=== PATIENT | male | born 1935 | race Two or more races ===

== ENCOUNTER 2022-04-22 17:13 | Inpatient (IN) | payer MEDICARE, OTHER ==
[~2022-04-22] VITALS: Ht 182.9 cm; Wt 83.5 kg
--- NOTE | 2022-04-22 17:15 | NUR ---
down in stor Received pt 86 yrs male came by ritu from store for syncope wake and fallow command pt said i fall down family at bed side
[2022-04-22] MEDS ORDERED: IV NS 0.9% 1,000 ML BAG IV ONE (17:30)
[2022-04-22 17:57] LABS: BASOPHILS % (AUTO) 0.4 % (0.0-2.0); EOSINOPHILS % (AUTO) 2.8 % (0.0-6.0); HEMATOCRIT 41 % (39-51); HEMOGLOBIN 13.7 g/dL (13.5-17.5); LYMPHOCYTES # (AUTO) 0.8 K/uL (0.8-4.8); LYMPHOCYTES % (AUTO) 12.3 % (20.0-44.0); MEAN CORPUSCULAR HGB CONC 33 g/dl (31.0-36.0); MEAN CORPUSCULAR VOLUME 88 fL (80-96); MONOCYTES # (AUTO) 0.4 K/uL (0.1-1.30); MONOCYTES % (AUTO) 5.4 % (2.0-12.0); NEUTROPHILS # (AUTO) 5.4 K/uL (1.8-8.9); NEUTROPHILS % (AUTO) 79.1 % (43.0-81.0); PLATELET COUNT (AUTO) 214 K/uL (150-450); RED BLOOD CELL COUNT(AUTO) 4.69 MIL/uL (4.5-6.0); WHITE BLOOD COUNT (AUTO) 6.8 K/uL (4.3-11.0)
[2022-04-22 18:00] LABS: CALCIUM, SERUM 8.2 mg/dL (8.5-10.1); CARBON DIOXIDE 28 mmol/L (21-32); CHLORIDE 101 mmol/L (98-107); CREATININE 1.8 mg/dL (0.6-1.3); GLUCOSE 122 mg/dL (74-106); POTASSIUM 4.1 mmol/L (3.5-5.1); SODIUM SERUM 136 mmol/L (136-145); UREA NITROGEN, BLOOD 30 mg/dL (7-18)
[2022-04-22 18:05] LABS: ALANINE AMINOTRANSFERASE 55 U/L (12-78); ALBUMIN 3.3 g/dL (3.4-5.0); ALKALINE PHOSPHATASE 64 U/L (46-116); ASPARTATE AMINOTRANSFERASE 32 U/L (15-37); BILIRUBIN,DIRECT 0.2 mg/dL (0.0-0.2); BILIRUBIN,TOTAL 0.4 mg/dL (0.2-1.0); TOTAL PROTEIN, SERUM 7.3 g/dL (6.4-8.2)
[2022-04-22 18:38] LABS: BAND % (MANUAL) 2 % (0.0-5.0); EOSINOPHILS % (MANUAL) 8 % (0-4); LYMPHOCYTES % (MANUAL) 10 % (16-48); MONOCYTES % (MANUAL) 2 % (0-11.0); NEUTROPHILS % (MANUAL) 78 (42-76)
--- NOTE | 2022-04-22 18:45 | NUR ---
rapid covid swab done and sent to lab
--- NOTE | 2022-04-22 19:17 | NUR ---
MOVE SHEET SUBMITTED.
--- NOTE | 2022-04-22 19:45 | NUR ---
RECEIVED PT IN ER BED 2 FROM HOME. PT IS RESTING COMFORTABLY IN BED. ALERT AND DENIES ANY DISCOMFORT AT THIS TIME. RR EVEN AND NON LABORED. CONNECTED TO POX AND HEART MONITOR. WARM BLANKET PROVIDED. WILL CONTINUE TO MONITOR
--- NOTE | 2022-04-22 19:45 | NUR ---
HAND OFF ITALIA ACOSTA
--- NOTE | 2022-04-22 20:27 | NUR ---
COVID +. AWARE. PAGED RHONDA RUFFIN
--- NOTE | 2022-04-22 20:56 | NUR ---
PT GOING TO 108
--- NOTE | 2022-04-22 21:50 | NUR ---
RN NOTES RECEIVED ER ADMISSION REPORT FROM DAVE JOHNSON. ALL PERTINENT ADMISSION INFO REGARDING PT NOTED. WILL WAIT FOR PT TO BE TRANSFERRED TO UNIT AND ADDRESS NEEDS ACCORDINGLY. MACHINE TAPER MADE AWARE.
--- NOTE | 2022-04-22 21:51 | NUR ---
REPORT GIVEN TO RONDA ACOSTA FOR COTY
[2022-04-22 22:00] VITALS: BP 130/77
--- NOTE | 2022-04-22 22:00 | NUR ---
RN NOTES RECEIVED PT FROM ER VIA [facility]IE ACCOMPANIED BY 2 ER STAFF AND TRANSFERRED TO BED VIA 2 PERSON ASSIST. PT IS A/OX4; ON 4L OF O2 VIA NC RESPIRATIONS EVEN AND UNLABORED. COMPREHENSIVE PHYSICAL ASSESSMENT AND PATIENT CARE DONE. CALL LIGHT WITHIN REACH, SAFETY MEASURES AND ISOLATION PRECAUTION IN PLACE, WILL CONTINUE MONITOR AND ASSESS THROUGHOUT THE SHIFT. WILL CARRY OUT MD ORDERS ACCORDINGLY. TRUCK CRANE OPERATOR HELPER MADE AWARE.
--- NOTE | 2022-04-22 22:10 | NUR ---
TRANSFERRED TO 108 UNDER ACLS
[2022-04-22] MEDS ORDERED: Z GUARD REMEDY 4 OZ OINT TP PRN (22:30)
[2022-04-22] MEDS ORDERED: ONDANSETRON HCL/PF 4 MG/2 ML VIAL IVP PRN (22:30)
[2022-04-22] MEDS ORDERED: ACETAMINOPHEN 325 MG TABLET PO PRN (22:30)
--- NOTE | 2022-04-22 22:30 | NUR ---
RN NOTES RECEIVED CALL FROM DR. RUFFIN, TO TRY SWITCHING PT ON ROOM AIR; USED TO BE ON 2-4L SAT @99-100%. RN ACKNOWLEDGED. PT PUT ON ROOM AIR AND TOLERATES WELL O2 SAT REMAINS @95-98%. MD AWARE AND DISH PERSON MADE AWARE.
[2022-04-22] MEDS: IV NS 0.9% 1,000 ML IV PRN (22:59)
[2022-04-23] VITALS: BP 123/76
[2022-04-23 04:00] VITALS: BP 123/64
--- NOTE | 2022-04-23 04:00 | NUR ---
RN NOTES PATIENT NOTED TO BE IN NO SIGNS OF ACUTE RESPIRATORY DISTRESS AT THIS TIME, SAFE ENVIRONMENT MAINTAINED FOR PT. AM PATIENT CARE RENDERED. WILL CONTINUE TO MONITOR AND REASSESS FOR ANY CHANGES THROUGHOUT THE SHIFT.
--- NOTE | 2022-04-23 06:41 | NUR ---
RN CLOSING NOTE: PATIENT REMAINS IN ROOM IN NO SIGNS OF RESPIRATORY DISTRESS, PATIENT ON ROOM AIR ;TOLERATING WELL SATURATING @ >95% SP02. SB ON MONITOR. SAFETY MEASURES IMPLEMENTED, BED IN LOWEST POSITION, LOCKED, SIDE RAILS UP, CALL LIGHT WITHIN REACH. ALL NEEDS AND ORDERS ADDRESSED DURING THE SHIFT. IV ACCESS MAINTAINED INTACT, SECURED AND FLUSHING WELL. PATIENT KEPT CLEAN AND COMFORTABLE WITHIN THE SHIFT. PATIENT ENDORSED TO INCOMING SHIFT RN WITH STABLE VITAL SIGN AND FOR CONTINUITY OF CARE.
--- NOTE | 2022-04-23 07:20 | NUR ---
GRINDER MACHINE SETTER OPENING NOTE: RECEIVED PT IN BED ASLEEP PATIENT REMAINS IN ROOM IN NO SIGNS OF RESPIRATORY DISTRESS, PATIENT ON ROOM AIR ;TOLERATING WELL SATURATING @ >95% SP02. SB ON MONITOR HR 56. SAFETY MEASURES IMPLEMENTED, BED IN LOWEST POSITION, LOCKED, SIDE RAILS UP, CALL LIGHT WITHIN REACH. ALL NEEDS AND ORDERS ADDRESSED DURING THE SHIFT. IV ACCESS MAINTAINED INTACT, SECURED AND FLUSHING WELL.RUNNING IV NS AT 75 ML/HR, CONTINUE ISOLATION FOR COVID, WILL MONITOR
[2022-04-23 07:31] LABS: CALCIUM, SERUM 7.7 mg/dL (8.5-10.1); CARBON DIOXIDE 25 mmol/L (21-32); CHLORIDE 107 mmol/L (98-107); CREATININE 1.5 mg/dL (0.6-1.3); GLUCOSE 86 mg/dL (74-106); MAGNESIUM 1.8 mg/dL (1.8-2.4); PHOSPHORUS 2.2 mg/dL (2.5-4.9); POTASSIUM 3.7 mmol/L (3.5-5.1); SODIUM SERUM 139 mmol/L (136-145); UREA NITROGEN, BLOOD 24 mg/dL (7-18)
[2022-04-23 07:32] LABS: BASOPHILS % (AUTO) 0.4 % (0.0-2.0); EOSINOPHILS % (AUTO) 2.7 % (0.0-6.0); HEMATOCRIT 37 % (39-51); HEMOGLOBIN 12.4 g/dL (13.5-17.5); LYMPHOCYTES # (AUTO) 0.9 K/uL (0.8-4.8); LYMPHOCYTES % (AUTO) 13.9 % (20.0-44.0); MEAN CORPUSCULAR HGB CONC 33 g/dl (31.0-36.0); MEAN CORPUSCULAR VOLUME 88 fL (80-96); MONOCYTES # (AUTO) 0.4 K/uL (0.1-1.30); MONOCYTES % (AUTO) 6.3 % (2.0-12.0); NEUTROPHILS % (AUTO) 76.7 % (43.0-81.0); PLATELET COUNT (AUTO) 177 K/uL (150-450); RED BLOOD CELL COUNT(AUTO) 4.24 MIL/uL (4.5-6.0); WHITE BLOOD COUNT (AUTO) 6.5 K/uL (4.3-11.0)
[2022-04-23 07:36] LABS: CHOLESTEROL 122 mg/dL (<200); HDL CHOLESTEROL 44 mg/dL (40-60); LDL 66 mg/dL (0-99); TRIGLYCERIDES 80 mg/dL (30-150)
[2022-04-23] MEDS: PANTOPRAZOLE 40 MG TABLET.DR PO SCH (07:55)
[2022-04-23 08:00] VITALS: BP 141/65
[2022-04-23] MEDS ORDERED: HEPARIN SODIUM, PORCINE 5000 UNITS/1 ML VIAL SQ SCH (09:00)
[2022-04-23] MEDS: HEPARIN SODIUM, PORCINE 5000 UNITS/1 ML VIAL SQ SCH ×2 (10:59→17:01)
[2022-04-23] MEDS ORDERED: K PHOS NEUTRAL 250 MG TABLET PO ONE (11:00)
[2022-04-23 11:49] LABS: BAND % (MANUAL) 3 % (0.0-5.0); BASOPHILS % (MANUAL) 0 % (0.0-2.0); EOSINOPHILS % (MANUAL) 7 % (0-4); LYMPHOCYTES % (MANUAL) 11 % (16-48); MONOCYTES % (MANUAL) 8 % (0-11.0); NEUTROPHILS % (MANUAL) 71 (42-76)
[2022-04-23 12:00] VITALS: BP 138/64
[2022-04-23] MEDS: IV NS 0.9% 1,000 ML IV PRN (15:18)
[2022-04-23 16:00] VITALS: BP 140/69
[2022-04-23] MEDS ORDERED: METO-357 PO (16:47)
[2022-04-23] MEDS ORDERED: APIX5TAB PO (16:47)
[2022-04-23] MEDS ORDERED: [UNRECOGNIZED DRUG - REMARK] (16:48)
--- NOTE | 2022-04-23 19:15 | NUR ---
RN CLOSING NOTE: PATIENT REMAINS IN ROOM , ALERT AND ORIENTED X2-3 WITH EPISODES OF CONFUSION AND FORGETFULNESS.IN NO SIGNS OF RESPIRATORY DISTRESS, PATIENT ON ROOM AIR ;TOLERATING WELL SATURATING @ >95% SP02. SB-SR ON MONITOR. SAFETY MEASURES IMPLEMENTED, BED IN LOWEST POSITION, LOCKED, SIDE RAILS UP, CALL LIGHT WITHIN REACH. ALL NEEDS AND ORDERS ADDRESSED DURING THE SHIFT. IV ACCESS MAINTAINED INTACT, SECURED AND FLUSHING WELL. PATIENT KEPT CLEAN AND COMFORTABLE WITHIN THE SHIFT.PT REFUSES TO USE URINAL TO URINATE HE INSIST TO WALK TO BATHROOM TO URINATE ABOUT 10 TIMES. CONTINUE DROPLET ISOLATION FOR COVID. ENDORSED TO INCOMING SHIFT RN WITH STABLE VITAL SIGN AND FOR CONTINUITY OF CARE.
--- NOTE | 2022-04-23 19:25 | NUR ---
LENS INSERTER OPEN NOTE: ALERT AND ORIENTED TO NAME TIME AND PLACE. UNLABORED BREATHING AT ROOM AIR SATING 98%. ON TELE MONITOR WITH A READING OF SINUS BHAVYA 55. LEFT FOREARM IV INTACT PATENT NO S/S OF COMPLICATIONS. IVF NS 75 ML/HR. CONTINENT OF URINE, USES URINAL. DECLINES PAIN OR DISCOMFORT. HOB ELEVATED SEMI-FOWLERS POSITION. BILATERAL HALF SIDE RAILS UP X2. BED IN LOW POSITION, LOCKED, BED EXIT ALARM ON, CALL LIGHT WITHIN REACH.
[2022-04-23 20:00] VITALS: BP 142/69
[2022-04-24] VITALS (8 sets, daily range): BP systolic 102–147; BP diastolic 60–83
[2022-04-24] MEDS: IV NS 0.9% 1,000 ML IV PRN (05:35)
--- NOTE | 2022-04-24 06:30 | NUR ---
LOCK INSTALLER CLOSING NOTE: ALERT AND ORIENTED TO NAME TIME AND PLACE. UNLABORED BREATHING AT ROOM AIR SATING 97%. ON TELE MONITOR WITH A READING OF SINUS BHAVYA 58. LEFT FOREARM IV INTACT PATENT NO S/S OF COMPLICATIONS. IVF NS 75 ML/HR. CONTINENT OF URINE, USES URINAL. URINE IS YELLOW CLEAR. DECLINES PAIN OR DISCOMFORT. HOB ELEVATED SEMI-FOWLERS POSITION. BILATERAL HALF SIDE RAILS UP X2. BED IN LOW POSITION, LOCKED, BED EXIT ALARM ON, CALL LIGHT WITHIN REACH.
[2022-04-24 07:17] LABS: BASOPHILS % (AUTO) 0.6 % (0.0-2.0); EOSINOPHILS % (AUTO) 3.4 % (0.0-6.0); HEMATOCRIT 37 % (39-51); HEMOGLOBIN 12.7 g/dL (13.5-17.5); LYMPHOCYTES % (AUTO) 18.6 % (20.0-44.0); MEAN CORPUSCULAR HGB CONC 34 g/dl (31.0-36.0); MEAN CORPUSCULAR VOLUME 87 fL (80-96); MONOCYTES # (AUTO) 0.5 K/uL (0.1-1.30); MONOCYTES % (AUTO) 8.5 % (2.0-12.0); NEUTROPHILS # (AUTO) 3.9 K/uL (1.8-8.9); NEUTROPHILS % (AUTO) 68.9 % (43.0-81.0); PLATELET COUNT (AUTO) 179 K/uL (150-450); RED BLOOD CELL COUNT(AUTO) 4.27 MIL/uL (4.5-6.0); WHITE BLOOD COUNT (AUTO) 5.6 K/uL (4.3-11.0)
[2022-04-24 07:42] LABS: CALCIUM, SERUM 7.4 mg/dL (8.5-10.1); CARBON DIOXIDE 27 mmol/L (21-32); CHLORIDE 105 mmol/L (98-107); CREATININE 1.4 mg/dL (0.6-1.3); GLUCOSE 87 mg/dL (74-106); MAGNESIUM 1.9 mg/dL (1.8-2.4); PHOSPHORUS 3.4 mg/dL (2.5-4.9); POTASSIUM 3.3 mmol/L (3.5-5.1); SODIUM SERUM 140 mmol/L (136-145); UREA NITROGEN, BLOOD 16 mg/dL (7-18)
[2022-04-24] MEDS: PANTOPRAZOLE 40 MG TABLET.DR PO SCH (08:28)
[2022-04-24] MEDS: HEPARIN SODIUM, PORCINE 5000 UNITS/1 ML VIAL SQ SCH (08:30)
--- NOTE | 2022-04-24 09:18 | NUR ---
RN NOTE OBTAINED CONSENT FOR COMPUTERIZED TOMOGRAPHY ANGIO CAROTID, PLACED IN PATIENT'S FOLDER
[2022-04-24] MEDS: ASPIRIN 81 MG TAB.CHEW PO SCH (09:25)
[2022-04-24] MEDS: POTASSIUM CHLORIDE 20 MEQ TAB.PRT.SR PO SCH (11:20)
[2022-04-24 11:57] LABS: BAND % (MANUAL) 3 % (0.0-5.0); EOSINOPHILS % (MANUAL) 1 % (0-4); LYMPHOCYTES % (MANUAL) 22 % (16-48); MONOCYTES % (MANUAL) 7 % (0-11.0); MYELOCYTES % 2 % (0-0); NEUTROPHILS % (MANUAL) 65 (42-76)
[2022-04-24] MEDS: APIXABAN 2.5 MG TABLET PO SCH (16:58)
--- NOTE | 2022-04-24 19:30 | NUR ---
SQL BI DEVELOPER OPEN NOTE: ALERT AND ORIENTED TO NAME TIME AND PLACE. UNLABORED BREATHING AT ROOM AIR SATING 96%. ON TELE MONITOR WITH A READING OF SINUS RHYTHM 70. LEFT FOREARM IV INTACT PATENT NO S/S OF COMPLICATIONS. IVF NS 75 ML/HR. CONTINENT OF URINE, USES URINAL. DECLINES PAIN OR DISCOMFORT. HOB ELEVATED SEMI-FOWLERS POSITION. BILATERAL HALF SIDE RAILS UP X2. BED IN LOW POSITION, LOCKED, BED EXIT ALARM ON, CALL LIGHT WITHIN REACH.
--- NOTE | 2022-04-24 20:20 | NUR ---
DIRECTOR OF CURRICULUM AND INSTRUCTION CLOSING NOTE PATIENT IN BED ALERT AND ORIENTED TO NAME TIME AND PLACE. UNLABORED BREATHING AT ROOM AIR SATING 97%. ON TELE MONITOR WITH A READING OF SINUS RHYTHM. LEFT FOREARM IV INTACT PATENT NO S/S OF COMPLICATIONS. IVF NS 75 ML/HR. URINAL AT BESIDE. URINE IS YELLOW CLEAR. PATIENT DENIES PAIN OR DISCOMFORT AT THIS TIME. HOB ELEVATED SEMI-FOWLERS POSITION. BILATERAL HALF SIDE RAILS UP X2. BED IN LOW POSITION, LOCKED, BED EXIT ALARM ON, CALL LIGHT WITHIN REACH. WILL ENDORSE CONTINUITY OF CARE TO ULTRASONIC SEAMING MACHINE OPERATOR NURSE
[2022-04-24] MEDS ORDERED: SIMVASTATIN 20 MG TABLET PO SCH (22:00)
[2022-04-25] VITALS: BP 152/89
[2022-04-25 04:00] VITALS: BP 152/82
[2022-04-25] MEDS: IV NS 0.9% 1,000 ML IV PRN (06:41)
--- NOTE | 2022-04-25 06:55 | NUR ---
ASSEMBLER RADIO AND ELECTRICAL CLOSING NOTE: ALERT AND ORIENTED TO NAME TIME AND PLACE. UNLABORED BREATHING AT ROOM AIR SATING 98%. ON TELE MONITOR WITH A READING OF SINUS RHTYM 68. LEFT FOREARM IV INTACT PATENT NO S/S OF COMPLICATIONS. IVF NS 75 ML/HR. CONTINENT OF URINE, USES URINAL. URINE IS YELLOW CLEAR. DECLINES PAIN OR DISCOMFORT. HOB ELEVATED SEMI-FOWLERS POSITION. BILATERAL HALF SIDE RAILS UP X2. BED IN LOW POSITION, LOCKED, BED EXIT ALARM ON, CALL LIGHT WITHIN REACH. FOR CTA TODAY, ENDORSED TO INCOMING NURSE.
[2022-04-25 07:29] LABS: BASOPHILS % (AUTO) 0.5 % (0.0-2.0); EOSINOPHILS % (AUTO) 3.9 % (0.0-6.0); HEMATOCRIT 37 % (39-51); HEMOGLOBIN 12.6 g/dL (13.5-17.5); LYMPHOCYTES % (AUTO) 16.5 % (20.0-44.0); MEAN CORPUSCULAR HGB CONC 34 g/dl (31.0-36.0); MEAN CORPUSCULAR VOLUME 88 fL (80-96); MONOCYTES # (AUTO) 0.5 K/uL (0.1-1.30); NEUTROPHILS # (AUTO) 4.2 K/uL (1.8-8.9); NEUTROPHILS % (AUTO) 70.1 % (43.0-81.0); PLATELET COUNT (AUTO) 200 K/uL (150-450); RED BLOOD CELL COUNT(AUTO) 4.25 MIL/uL (4.5-6.0)
[2022-04-25] MEDS: PANTOPRAZOLE 40 MG TABLET.DR PO SCH (07:30)
[2022-04-25 07:44] LABS: CALCIUM, SERUM 7.6 mg/dL (8.5-10.1); CARBON DIOXIDE 28 mmol/L (21-32); CHLORIDE 105 mmol/L (98-107); CREATININE 1.3 mg/dL (0.6-1.3); GLUCOSE 91 mg/dL (74-106); POTASSIUM 3.5 mmol/L (3.5-5.1); SODIUM SERUM 140 mmol/L (136-145); UREA NITROGEN, BLOOD 14 mg/dL (7-18)
[2022-04-25 08:00] VITALS: BP 153/83
[2022-04-25] MEDS: ASPIRIN 81 MG TAB.CHEW PO SCH (08:27)
[2022-04-25] MEDS: APIXABAN 2.5 MG TABLET PO SCH ×2 (08:28→16:20)
[2022-04-25 13:02] LABS: BAND % (MANUAL) 5 % (0.0-5.0); EOSINOPHILS % (MANUAL) 2 % (0-4); LYMPHOCYTES % (MANUAL) 17 % (16-48); MONOCYTES % (MANUAL) 11 % (0-11.0); MYELOCYTES % 1 % (0-0); NEUTROPHILS % (MANUAL) 64 (42-76)
--- NOTE | 2022-04-25 14:45 | NUR ---
RN NOTE TALKED TO ENRICHMENT DIRECTOR X3 TODAY REGARDING STAT CTA CAROTID. AWAITING TECH TO COME MOLDED GOODS EMBOSSING PRESS OPERATOR PATIENT
[2022-04-25] MEDS ORDERED: CT SWABBABLE VALVE TRANS SET 1 EA INFUS.SET MC ONE (14:56)
[2022-04-25] MEDS ORDERED: IOHEXOL-350 100 ML VIAL IV ONE (14:56)
[2022-04-25] MEDS ORDERED: IV NS 0.9% 250 ML IV ONE (14:56)
[2022-04-25 16:00] VITALS: BP 144/77
[2022-04-25] MEDS ORDERED: ASPI-1169 PO (18:08)
[2022-04-25] MEDS ORDERED: SIMV-46 PO (18:08)
[2022-04-25] MEDS ORDERED: PANT40TA49 PO (18:08)
--- NOTE | 2022-04-25 20:03 | NUR ---
DC NOTE PT'S SON ARRIVED TO UNIT TO CARTON MACHINE OPERATOR PT. PT'S GOWN REMOVED AND DRESSED IN OWN CLOTHES. WRISTBAND REMOVED, IV ACCESS HAS BEEN REMOVED BY DAYSHIFT NURSE. ALL BELONGINGS CHECKED AND ACCOUNTED FOR. DC PACKET GIVEN TO PT AND SON. PT WHEELED OUT OF UNIT IN STABLE CONDITION.
== END 2022-04-25 21:01 | disposition home or self-care (01) | DRG 177 ==
LOC: ER 17:19 → TELE1 21:07 → MEDSG1 04-24 22:13
PROVIDERS: ADMIT Nurse Practitioner Family; ATTEND Student in an Organized Health Care Education/Training Program
DX: U07.1 COVID-19 (principal); G92.8 Other toxic encephalopathy; J12.82 Pneumonia due to coronavirus disease 2019; N17.0 Acute kidney failure with tubular necrosis; G90.8 Other disorders of autonomic nervous system; I10 Essential (primary) hypertension; E78.5 Hyperlipidemia, unspecified; N40.0 Benign prostatic hyperplasia without lower urinary tract symptoms; Z86.73 Personal history of transient ischemic attack (TIA), and cerebral infarction without residual deficits; Z80.3 Family history of malignant neoplasm of breast; E11.65 Type 2 diabetes mellitus with hyperglycemia; E83.39 Other disorders of phosphorus metabolism; R00.1 Bradycardia, unspecified; E83.51 Hypocalcemia; E86.0 Dehydration; E87.6 Hypokalemia; I65.23 Occlusion and stenosis of bilateral carotid arteries
CPT/HCPCS: 36415; 70450-TC; 70498-TC; 71045-TC; 80048-TC; 80061-TC; 80076-TC; 83735-TC; 84100-TC; 84484-TC; 85025-TC; 85378-TC; 86140-TC; 87081-TC; 93307-TC; 93880-TC; 93970-TC; C9803; G0378; J1644; J3490; J7030; J7050; Q9967